=== PATIENT | female | born 1945 | race Caucasian/White ===

== ENCOUNTER 2021-04-01 04:04 | Inpatient (IN) | payer MEDICARE, SELFPAY ==
[2021-04-01] VITALS (7 sets, daily range): BP systolic 105–133; BP diastolic 36–66; PULSE 73–80; RESP 16–24; TEMP 36.6–37.3; O2SAT 93–97; BMI 27.0
--- NOTE | ~2021-04-01 | XR_ITS ---
EXAMINATION: XR chest 2V DATE: 04/01/2021 09:22 INDICATION: Chest pain TECHNIQUE: AP and lateral views of the chest are obtained. COMPARISON: None available FINDINGS: The lungs are free of acute opacities. There is no pleural effusion or pneumothorax. There is a large hiatal hernia. The heart size is normal. There is moderate thoracic spondylosis. IMPRESSION: 1. No acute cardiopulmonary abnormality. Reviewed, dictated and finalized at location A.
--- NOTE | 2021-04-01 03:40 | ADMGEN ---
This patient, Roz Robison, was admitted to 2 Medical Room 240-. Patient/family oriented to hospital policies and general routines including ID bracelet, bed and alarms, visiting hours, pain management, procedures, bathroom and other care routines, personal items, smoking policy, room service/diet, and visiting hours. Information on how to activate the Rapid Response Team has been discussed. Patient/Family are encouraged to report perceived risks to care and to ask questions if they do not understand what they are told or what they should do.
[2021-04-01 06:25] LABS: Basophils Absolute Auto 0.1 K/mm3 (0.0-0.1); Basophils Percent Auto 0.5 % (0.2-1.2); Eosinophils Absolute Auto 0.3 K/mm3 (0-0.3); Eosinophils Percent Auto 2.7 % (0-4.4); Hematocrit 32.3 % (37.0-47.0); Hemoglobin 10.1 g/dL (12.0-15.0); Immature Granulocyte Absolute 0.09 K/mm3 (0.00-0.031); Immature Granulocyte Percent A 0.7 % (0-0.5); Immature Platelet Fraction Pct 12.9 % (0.9-11.2); Lymphocytes Absolute Auto 1.08 K/mm3 (0.9-3.2); Lymphocytes Percent Auto 8.9 % (18.3-44.2); Mean Corpuscular HGB Conc 31.3 g/dl (32-36); Mean Corpuscular Hemoglobin 26.9 pg (26-34); Mean Corpuscular Volume 85.9 fl (80-100); Mean Platelet Volume 13.4 fl (7.4-10.4); Monocytes Absolute Auto 0.9 K/mm3 (0.1-0.6); Monocytes Percent Auto 7.6 % (2.6-8.5); Neutrophils Absolute Auto 9.6 K/mm3 (1.3-6.7); Neutrophils Percent Auto 79.6 % (45.5-73.1); Platelet Count Result 230 k/mm3 (150-375); Red Blood Count 3.76 M/mm3 (4.2-5.4); Red Cell Distribution Width 20.7 % (11.5-14.5); White Blood Count 12.1 K/mm3 (4.5-10.0)
[2021-04-01 06:38] LABS: Alanine Aminotransferase 115 U/L (4-35); Albumin Level 2.8 g/dL (3.5-5.1); Alkaline Phosphatase 1266 U/L (38-126); Anion Gap 10 mmol/L (8-16); Aspartate Amino Transferase 227 U/L (14-36); Bilirubin,Total 12.1 mg/dL (0.2-1.3); Blood Urea Nitrogen 11 mg/dL (7-17); Calcium 8.6 mg/dL (8.4-10.2); Carbon Dioxide 28 mmol/L (22-30); Chloride 102 mmol/L (98-107); Estimated CRCL calculation 40 ml/min; Estimated Glomerular Filt Rate > 60; Glucose 90 mg/dL (65-110); Magnesium 1.8 mg/dL (1.6-2.3); Phosphorus 3.8 mg/dL (2.5-4.5); Potassium 3.6 mmol/L (3.4-5.0); Sodium 140 mmol/L (137-145)
[2021-04-01 06:50] LABS: INR 1.2; Prothrombin Time 14.6 Seconds (11.1-14.7)
[2021-04-01 06:51] LABS: Partial Thromboplastin Time 30.2 SECONDS (22.3-36.8)
--- NOTE | 2021-04-01 08:53 | PM.IMHP ---
H&P: HPI History of Present Illness Date/Time: 04/01/21 08:53 Chief Complaint: Weakness and abnormal urine color Narrative: 76-year-old female in previously good health began feeling poorly in late January. She noted decreased appetite and increasing weakness and decreased exercise tolerance. Under recent point that she fell and could not pull herself up from the floor her family summoned EMS and she was taken to [facility]. There an EGD revealed peptic ulcer disease. She was reportedly H pylori negative. She was started on PPI therapy and sent home. She remained very weak. Was unable to go she ate the steps. She was taken back to [facility]. From there she was transferred to [facility] and [facility] for group home rehab. Yesterday she staff noted that her urine color and her skin color looked a bit different. Labs were drawn and her bilirubin was markedly elevated and liver enzymes were abnormal. Because of this she was sent back to the emergency department. She was transferred to [facility] because of availability interventional soil fertility specialist. While at the outside hospital she underwent a CT of the abdomen and pelvis. This revealed a large heterogeneous mass in the head of the pancreas with dilatation of pancreatic ducts and intrahepatic and extrahepatic bile ducts. There were also multiple hypodense lesions with mass effect noted in the liver. Review of Systems Review of Systems: Generalized weakness. Decreased appetite. Weight loss that she is not able to quantify. Dark urine. Yellow skin. All systems reviewed & are unremarkable except as noted in HPI and below PMFSH Past Medical History Medical History (Updated 04/01/21 @ 09:09 by Jan Notrh MD) Anemia Essential hypertension Former smoker History of skin cancer in adulthood Moh's surgery on skin cancer superior to right upper lip PUD (peptic ulcer disease) Vitamin D deficiency Surgical History Surgical History (Updated 04/01/21 @ 09:00 by Jan North MD) Hx of lymph node biopsy excision of labial mass said to be lymph node Family History Family History (Updated 04/01/21 @ 09:09 by Jan North MD) Father No problems noted. Mother No problems noted. 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 Spiritual care concerns: No Meds Home Medications and Allergies Home Medications Medication Instructions Recorded Confirmed Type allopurinol 100 mg PO DAILY 04/01/21 04/01/21 History atenolol 50 mg PO DAILY 04/01/21 04/01/21 History ergocalciferol (vitamin D2) 50,000 unit PO WEEKLY 04/01/21 04/01/21 History [Vitamin D2] ezetimibe-simvastatin 1 tablet PO HS 04/01/21 04/01/21 History ferrous sulfate [Iron (ferrous 325 mg PO BID 04/01/21 04/01/21 History sulfate)] fluticasone propion-salmeterol 1 inh INHALATION BID 04/01/21 04/01/21 History [Wixela Inhub] lisinopril 30 mg PO DAILY 04/01/21 04/01/21 History Allergies Allergy/AdvReac Type Severity Reaction Status Date / Time adhesive Allergy Itching Verified 04/01/21 04:21 Vital Signs Vital Signs - 24 hr 04/01/21 03:48 04/01/21 04:42 Temperature 98.3 F 98.7 F Pulse Rate 80 73 Respiratory Rate 16 16 Blood Pressure 122/62 105/58 L Pulse O
[2021-04-01] MEDS: lisinopriL 10 MG TABLET 30 MG PO (09:00)
[2021-04-01] MEDS: atenoloL 50 MG TABLET PO (09:00)
[2021-04-01] MEDS: FERROUS SULFATE 324 MG TABLET PO ×2 (09:00→16:59)
[2021-04-01] MEDS: allopurinoL 100 MG TABLET PO (09:01)
--- NOTE | 2021-04-01 09:09 | PC.NURSE ---
pt to Xray at 0965
[2021-04-01] MEDS: FLUTICASONE/SALMETEROL 45-21 MCG INHALER 1 PUFF 2 PUFF INHALATION (10:18)
[2021-04-01] MEDS: PANTOPRAZOLE 40 MG TABLET PO (11:43)
--- NOTE | 2021-04-01 12:46 | WPDGICN ---
Assessment and Plan Assessment and plan (1) Obstructive jaundice: Code(s): K83.1 - Obstruction of bile duct Status: Acute Assessment and Plan: most likely malignancy, could be pancreatic or biliary unfortunately seems to be advanced (liver mets per recent CT scan) will attempt ERCP with metal stent placement to decompress bile duct, also can get samples (can try to use cholangioscopy) will get tumor markers and based on findings will ask oncology to see but probably palliative treatment (2) Elevated liver enzymes: Code(s): R74.8 - Abnormal levels of other serum enzymes Status: Acute Assessment and Plan: trend liver enzymes ercp saturday (3) Pancreatic mass: Code(s): K86.89 - Other specified diseases of pancreas Status: Acute (4) Liver metastases: Code(s): C78.7 - Secondary malignant neoplasm of liver and intrahepatic bile duct Status: Acute (5) Generalized weakness: Code(s): R53.1 - Weakness Status: Acute GI Consult Note Consult date/time: 04/01/21 12:46 Reason for consult: obstructive jaundice, pancreatic head mass HPI: Roz Robison is a 76 year old female with no major medical problems who noted decline in general health in late January with decreased appetite and increasing weakness. She initially went to [facility], evaluated by Dr Cowart who performed EGD that showed peptic ulcer disease and started on ppi and sent home. She did not get any better in fact continue with generalized weakness and fatigue, she was eventually taken to snf rehab because deconditioning but last few days noted dark urine and new onset of jaundice (denies previous history of liver disease, no alcohol use). She was taken to ER at [facility] again, noted elevated liver enzymes and bili- reviewed (tb 9.9, alt 111, ast 194, alb 2.3, inr 1.3), then had CT scan a/p yesterday at [facility], record reviewed c/w large heterogeneous mass in the head of the pancreas which possible involves the adjacent duodenal sweep with dilatation of pancreatic ducts and severe dilation intrahepatic and extrahepatic bile ducts. There were also multiple hypodense lesions with mass effect noted in the liver c/w metastatic disease. I was called last night by ERP and asked to transfer patient to our hospital since they did not have availability of interventional washing machine striper (physician also said that tried several other hospitals in [facility] without luck). Patient denies any previous abdominal imaging. Review of Systems Constitutional: Constitutional: Reports fatigue, Reports lethargy, Reports weakness and Reports weight loss Eyes: Eyes: Denies blurry vision ENT: Reports Normal hearing present Cardiovascular: Cardiovascular: Denies chest pain Respiratory: Respiratory: Denies cough Gastrointestinal: Gastrointestinal: Denies abdominal pain and Reports nausea Genitourinary: Comments: dark urine Musculoskeletal: Musculoskeletal: Denies neck pain Integumentary/Breasts: Comments: jaundice Neurologic: Denies confusion Psychiatric: Psychiatric: Denies no additional psychiatric complaints [facility] Past Medical History Medical History (Updated 04/01/21 @ 12:57 by Mando Echevarria MD) Anemia Elevated liver enzymes Essential hypertension Former smoker Generalized weakness History of skin cancer in adulthood Moh's surgery on skin cancer superior to right upper lip Liver metastases Obstructive jaundice PUD (peptic ulcer disease) Vitamin D deficiency Surgical History Surgical History (Updated 04/01/21 @ 09:00 by Jan North MD) Hx of lymph node biopsy excision of labial mass said to be lymph node Family History Family History (Updated 04/01/21 @ 09:09 by Jan North MD) Father No problems noted. Mother No problems noted. Other Unknown family medical history Social History Social History (Updated 04/01/21 @ 09:11 by Jan Coyle
[2021-04-02] VITALS (7 sets, daily range): BP systolic 105–147; BP diastolic 54–78; PULSE 75–80; RESP 16–18; TEMP 36.6–37.1; O2SAT 94–98
[2021-04-02 04:42] LABS: Hematocrit 28.4 % (37.0-47.0); Hemoglobin 9.2 g/dL (12.0-15.0); Mean Corpuscular HGB Conc 32.4 g/dl (32-36); Mean Corpuscular Hemoglobin 27.3 pg (26-34); Mean Corpuscular Volume 84.3 fl (80-100); Mean Platelet Volume 12.5 fl (7.4-10.4); Platelet Count Result 208 k/mm3 (150-375); Red Blood Count 3.37 M/mm3 (4.2-5.4); White Blood Count 10.7 K/mm3 (4.5-10.0)
[2021-04-02 04:52] LABS: Alanine Aminotransferase 111 U/L (4-35); Albumin Level 2.6 g/dL (3.5-5.1); Alkaline Phosphatase 1146 U/L (38-126); Anion Gap 6 mmol/L (8-16); Aspartate Amino Transferase 201 U/L (14-36); Bilirubin,Total 12.4 mg/dL (0.2-1.3); Blood Urea Nitrogen 11 mg/dL (7-17); Calcium 8.4 mg/dL (8.4-10.2); Carbon Dioxide 29 mmol/L (22-30); Chloride 102 mmol/L (98-107); Estimated CRCL calculation 45 ml/min; Estimated Glomerular Filt Rate > 60; Glucose 106 mg/dL (65-110); Potassium 3.4 mmol/L (3.4-5.0); Sodium 137 mmol/L (137-145)
[2021-04-02] MEDS: ERGOCALCIFEROL 50,000 UNIT CAPSULE 50000 UNITS PO (09:02)
[2021-04-02] MEDS: allopurinoL 100 MG TABLET PO (09:02)
[2021-04-02] MEDS: atenoloL 25 MG TABLET PO (09:02)
[2021-04-02] MEDS: FERROUS SULFATE 324 MG TABLET PO ×2 (09:03→16:49)
[2021-04-02] MEDS: PANTOPRAZOLE 40 MG TABLET PO (09:03)
--- NOTE | 2021-04-02 09:46 | WPDGIPROGNO ---
Progress Note: A&P Assessment and Plan (1) Obstructive jaundice: Code(s): K83.1 - Obstruction of bile duct Status: Acute Assessment and Plan: plan for ercp and stent placement tomorrow, we will attempt also cholangioscopy if possible (2) Pancreatic mass: Code(s): K86.89 - Other specified diseases of pancreas Status: Acute Assessment and Plan: tumor markers pending, most likely malignancy will ask oncology to see (3) Elevated liver enzymes: Code(s): R74.8 - Abnormal levels of other serum enzymes Status: Acute Assessment and Plan: from CT findings will get also hepatitis panel (4) Liver metastases: Code(s): C78.7 - Secondary malignant neoplasm of liver and intrahepatic bile duct Status: Acute (5) Generalized weakness: Code(s): R53.1 - Weakness Status: Acute Subjective Date/time seen: 04/02/21 09:46 Interval history: no new events, some mild discomfort upper abdomen. She is tolerating diet Review of Systems Review of Systems: All systems reviewed & are unremarkable except as noted in HPI and below Exam Const: General: comfortable and no acute distress HENMT: General nose exam: Normal nares present Eyes: Other: icteric sclerae Neck: Neck: supple Resp: Auscultation: clear to auscultation bilaterally Cardio: Rate: regular rate GI: GI Palp: Yes Soft to palpation, No Tenderness to palpation present (GI) and No Guarding due to palpation present (GI) Auscultation: normal bowel sounds Skin: Other: jaundice Neuro: Speech: normal speech Motor exam (neuro): Normal motor muscle tone present throughout Extrem: General: normal to inspection Psych: Mental Status: mental status grossly normal Objective Data Vital Signs Vital Signs: Vital Signs - 24 hr 04/01/21 10:00 04/01/21 14:00 04/01/21 16:00 Temperature 99.1 F 97.8 F 99.2 F Pulse Rate 77 76 78 Respiratory Rate 24 H 24 H 24 H Blood Pressure 110/63 120/66 132/36 L Pulse Oximetry 95 97 95 04/01/21 20:00 04/02/21 00:00 04/02/21 04:00 Temperature 97.8 F 98.8 F 98.2 F Pulse Rate 78 78 75 Respiratory Rate 16 18 18 Blood Pressure 133/53 L 123/54 L 142/62 H Pulse Oximetry 94 96 96 04/02/21 08:00 04/02/21 09:02 Temperature 98.3 F Pulse Rate 80 80 Respiratory Rate 18 Blood Pressure 147/66 H Pulse Oximetry 94 Intake/Output Intake/Output: Intake & Output 03/30/21 03/31/21 04/01/21 04/02/21 23:59 23:59 23:59 23:59 Intake Total 630 240 Output Total 450 400 Balance 180 -160 Meds/Results Medications: Active Medications Generic Name Dose Route Start Last Admin Trade Name Freq PRN Reason Stop Dose Admin Allopurinol 100 mg 04/01/21 08:00 04/02/21 09:02 Allopurinol 100 Mg Tablet PO 100 mg DAILY@0800 [facility] Administration Atenolol 25 mg 04/02/21 09:00 04/02/21 09:02 Atenolol 25 Mg Tablet PO 25 mg DAILY MIKEL Administration Ergocalciferol 50,000 unit 04/02/21 09:00 04/02/21 09:02 Ergocalciferol 50,000 Unit Capsule PO 50,000 unit Merritt@0900 [facility] Administration Ferrous Sulfate 324 mg 04/01/21 08:00 04/02/21 09:03 Ferrous Sulfate 324 Mg Tablet PO 324 mg BIDWM [facility] Administration Morphine Sulfate 2 mg 04/01/21 05:23 Morphine Sulfate (*Crx) 2 Mg/Ml Inj IV PUSH Q4H PRN Pain Rated 7-10 Ondansetron HCl 4 mg 04/01/21 05:23 Ondansetron Inj 4 Mg/2 Ml Vial IV PUSH Q6H PRN Nausea And Vomiting Pantoprazole Sodium 40 mg 04/01/21 09:15 04/02/21 09:03 Pantoprazole 40 Mg Tablet PO 40 mg QAM [facility] Administration Fluticasone/Salmeterol 2 puff 04/01/21 08:00 04/01/21 23:15 Fluticasone/Salmeterol 45-21 Mcg Inhaler 1 Puff INHALATION Not Given Q12HRT [facility] Radiology Results: ITS Impressions Chest X-Ray 04/01/21 09:33 IMPRESSION: 1. No acute cardiopulmonary abnormality. Labs Labs: Laboratory Results - last 24 hr 04/02/21 04/02/21 04:31 04:31 WBC
[2021-04-02] MEDS: FLUTICASONE/SALMETEROL 45-21 MCG INHALER 1 PUFF 2 PUFF INHALATION ×2 (10:58→21:30)
--- NOTE | 2021-04-02 13:09 | PM.IMPN ---
Progress Note: A&P Assessment and Plan (1) Painless jaundice: Code(s): R17 - Unspecified jaundice Status: Acute Assessment and Plan: Clinically due to her pancreatic mass which is likely malignant GI plans ERCP with stenting for relief of biliary obstruction 04/03 (2) Pancreatic mass: Code(s): K86.89 - Other specified diseases of pancreas Status: Acute Assessment and Plan: Consistent with pancreatic malignancy CA 19-9, CA 125 pending (3) Liver masses: Code(s): R16.0 - Hepatomegaly, not elsewhere classified Status: Acute Assessment and Plan: Consistent with metastases likely from pancreatic primary (4) Essential hypertension: Code(s): I10 - Essential (primary) hypertension Status: Acute Assessment and Plan: Hold lisinopril and reduce atenolol to 25 mg daily (5) Anemia: Code(s): D64.9 - Anemia, unspecified Status: Acute (6) Vitamin D deficiency: Code(s): E55.9 - Vitamin D deficiency, unspecified Status: Acute Assessment and Plan: Continue vitamin-D replacement Subjective Date/time seen: 04/02/21 13:09 Interval history: Admitted 04/01/2021 with painless jaundice. 04/02 visit: A bit subdued today. Anxious regarding 04/03 ERCP. Tolerated diet. No abdominal pain at this time. Review of Systems Review of Systems: All systems reviewed & are unremarkable except as noted in HPI and below Exam Narrative: HEENT: PERRL, sclerae ICTERIC, pharyngeal mucosa pink and intact NECK: No JVD, adenopathy, or thyromegaly CHEST: Clear to auscultation. Normal effort. HEART: NL S1/S2, regular, no murmur ABDOMEN: BS+, soft, nontender, no mass, no bruits EXTREMITIES: No cyanosis, edema, or clubbing NEUROLOGIC: CN intact and symmetric to inspection. MUSCULOSKELETAL: Tone and strength symmetric. PSYCH: Alert. Oriented to person, place, and time. Objective Data Vital Signs Vital Signs: Vital Signs - 24 hr 04/01/21 14:00 04/01/21 16:00 04/01/21 20:00 Temperature 97.8 F 99.2 F 97.8 F Pulse Rate 76 78 78 Respiratory Rate 24 H 24 H 16 Blood Pressure 120/66 132/36 L 133/53 L Pulse Oximetry 97 95 94 04/02/21 00:00 04/02/21 04:00 04/02/21 08:00 Temperature 98.8 F 98.2 F 98.3 F Pulse Rate 78 75 80 Respiratory Rate 18 18 18 Blood Pressure 123/54 L 142/62 H 147/66 H Pulse Oximetry 96 96 94 04/02/21 09:02 Temperature Pulse Rate 80 Respiratory Rate Blood Pressure Pulse Oximetry Intake/Output Intake/Output: Intake & Output 03/30/21 03/31/21 04/01/21 04/02/21 23:59 23:59 23:59 23:59 Intake Total 630 600 Output Total 450 400 Balance 180 200 Meds/Results Medications: Active Medications Generic Name Dose Route Start Last Admin Trade Name Freq PRN Reason Stop Dose Admin Allopurinol 100 mg 04/01/21 08:00 04/02/21 09:02 Allopurinol 100 Mg Tablet PO 100 mg DAILY@0800 [facility] Administration Atenolol 25 mg 04/02/21 09:00 04/02/21 09:02 Atenolol 25 Mg Tablet PO 25 mg DAILY MIKEL Administration Ergocalciferol 50,000 unit 04/02/21 09:00 04/02/21 09:02 Ergocalciferol 50,000 Unit Capsule PO 50,000 unit Merritt@0900 [facility] Administration Ferrous Sulfate 324 mg 04/01/21 08:00 04/02/21 09:03 Ferrous Sulfate 324 Mg Tablet PO 324 mg BIDWM MIKEL Administration Morphine Sulfate 2 mg 04/01/21 05:23 Morphine Sulfate (*Crx) 2 Mg/Ml Inj IV PUSH Q4H PRN Pain Rated 7-10 Ondansetron HCl 4 mg 04/01/21 05:23 Ondansetron Inj 4 Mg/2 Ml Vial IV PUSH Q6H PRN Nausea And Vomiting Pantoprazole Sodium 40 mg 04/01/21 09:15 04/02/21 09:03 Pantoprazole 40 Mg Tablet PO 40 mg QAM MIKEL Administration Fluticasone/Salmeterol 2 puff 04/01/21 08:00 04/02/21 10:58 Fluticasone/Salmeterol 45-21 Mcg Inhaler 1 Puff INHALATION 2 puff Q12HRT MIKEL Administration Radiology Results: ITS Impressions Chest X-Ray 04/01/21 09:33 IMPRESSION: 1. No acut
[2021-04-02] MEDS: MORPHINE SULFATE (*CRX) 2 MG/ML INJ IV PUSH (16:58)
[2021-04-03] VITALS (16 sets, daily range): BP systolic 112–140; BP diastolic 52–78; PULSE 74–87; RESP 16–25; TEMP 36.1–37.6; O2SAT 94–100
[2021-04-03 05:36] LABS: Hematocrit 27.2 % (37.0-47.0); Hemoglobin 8.8 g/dL (12.0-15.0); Immature Platelet Fraction Pct 13.1 % (0.9-11.2); Mean Corpuscular HGB Conc 32.4 g/dl (32-36); Mean Corpuscular Volume 83.4 fl (80-100); Mean Platelet Volume 13.1 fl (7.4-10.4); Platelet Count Result 204 k/mm3 (150-375); Red Blood Count 3.26 M/mm3 (4.2-5.4); Red Cell Distribution Width 21.7 % (11.5-14.5); White Blood Count 10.6 K/mm3 (4.5-10.0)
[2021-04-03 05:43] LABS: Alanine Aminotransferase 104 U/L (4-35); Albumin Level 2.5 g/dL (3.5-5.1); Alkaline Phosphatase 1118 U/L (38-126); Anion Gap 7 mmol/L (8-16); Aspartate Amino Transferase 187 U/L (14-36); Bilirubin,Total 13.9 mg/dL (0.2-1.3); Blood Urea Nitrogen 11 mg/dL (7-17); Calcium 8.4 mg/dL (8.4-10.2); Carbon Dioxide 28 mmol/L (22-30); Chloride 100 mmol/L (98-107); Estimated CRCL calculation 45 ml/min; Estimated Glomerular Filt Rate > 60; Glucose 106 mg/dL (65-110); Potassium 3.4 mmol/L (3.4-5.0); Sodium 135 mmol/L (137-145)
[2021-04-03 07:06] LABS: Hepatitis B Surface Antigen Negative (Negative)
[2021-04-03 07:12] LABS: HAV RESULT Negative (Negative); Hepatitis B Core IgM Result Negative (Negative)
[2021-04-03 07:24] LABS: Hepatitis C Virus Antibody Negative (Negative)
[2021-04-03] MEDS: FERROUS SULFATE 324 MG TABLET PO ×2 (08:24→16:00)
[2021-04-03] MEDS: atenoloL 25 MG TABLET PO (08:24)
[2021-04-03] MEDS: allopurinoL 100 MG TABLET PO (08:24)
[2021-04-03] MEDS: PANTOPRAZOLE 40 MG TABLET PO (08:24)
[2021-04-03] MEDS: FLUTICASONE/SALMETEROL 45-21 MCG INHALER 1 PUFF 2 PUFF INHALATION ×2 (08:54→20:04)
--- NOTE | 2021-04-03 10:21 | PC.NURSE ---
I spoke with Mine from GI lab. She stated the Indomethacin is to be given in GI lab.
--- NOTE | 2021-04-03 12:22 | WPDANESEPPF ---
Anes - Initial Pre Proc Eval Procedure: Operation Date: 04/03/21 15:00 Proposed Procedures p Endoscopic Retro Cholangiopancreatogram - Mando Echevarria MD Date/Time: 04/03/21 12:22 Surgeon: Ping Tran MD Pre Op Diagnosis: Pancreatic Mass Patient Data Age: 76 Gender: F Height: 1.55 m Weight: 64.9 kg Last Vital Signs Temp 37.1 C 04/03/21 12:00 Pulse 79 04/03/21 12:00 Resp 18 04/03/21 12:00 BP 138/68 04/03/21 12:00 Pulse Ox 95 04/03/21 12:00 Allergies Allergy/AdvReac Type Severity Reaction Status Date / Time adhesive Allergy Itching Verified 04/01/21 04:21 Home Medications Medication Instructions Recorded Confirmed Type allopurinol 100 mg PO DAILY 04/01/21 04/01/21 History atenolol 50 mg PO DAILY 04/01/21 04/01/21 History ergocalciferol (vitamin D2) 50,000 unit PO WEEKLY 04/01/21 04/01/21 History [Vitamin D2] ezetimibe-simvastatin 1 tablet PO HS 04/01/21 04/01/21 History ferrous sulfate [Iron (ferrous 325 mg PO BID 04/01/21 04/01/21 History sulfate)] fluticasone propion-salmeterol 1 inh INHALATION BID 04/01/21 04/01/21 History [Wixela Inhub] lisinopril 30 mg PO DAILY 04/01/21 04/01/21 History Laboratory Tests 04/03/21 04/03/21 04/03/21 04:41 04:41 04:41 WBC 10.6 K/mm3 H K/mm3 (4.5-10.0) RBC 3.26 M/mm3 L M/mm3 (4.2-5.4) Hgb 8.8 g/dL L g/dL (12.0-15.0) Hct 27.2 % L % (37.0-47.0) MCV 83.4 fl fl (80-100) MCH 27.0 pg pg (26-34) MCHC 32.4 g/dl g/dl (32-36) RDW 21.7 % H % (11.5-14.5) Plt Count 204 k/mm3 k/mm3 (150-375) MPV 13.1 fl H fl (7.4-10.4) % Immature Plt Fraction 13.1 % H % (0.9-11.2) Sodium 135 mmol/L L mmol/L (137-145) Potassium 3.4 mmol/L mmol/L (3.4-5.0) Chloride 100 mmol/L mmol/L (98-107) Carbon Dioxide 28 mmol/L mmol/L (22-30) Anion Gap 7 mmol/L L mmol/L (8-16) BUN 11 mg/dL mg/dL (7-17) Creatinine 0.80 mg/dL mg/dL (0.7-1.0) Estim Creat Clear Calc 45 ml/min ml/min Estimated GFR > 60 (59 - ) Glucose 106 mg/dL mg/dL (65-110) Calcium 8.4 mg/dL mg/dL (8.4-10.2) Total Bilirubin 13.9 mg/dL H mg/dL (0.2-1.3) AST 187 U/L H U/L (14-36) ALT 104 U/L H U/L (4-35) Alkaline Phosphatase 1118 U/L H U/L (38-126) Total Protein 6.0 g/dL L g/dL (6.3-8.2) Albumin 2.5 g/dL L g/dL (3.5-5.1) CA 19-9 Antigen Pending CA 125 Antigen Pending Hepatitis A IgM Ab Hep Bs Antigen Hep B Core IgM Ab Hepatitis C Ab Screen 04/03/21 04:41 WBC RBC Hgb Hct MCV MCH MCHC RDW Plt Count MPV % Immature Plt Fraction Sodium Potassium Chloride Carbon Dioxide Anion Gap BUN Creatinine Estim Creat Clear Calc Estimated GFR Glucose Calcium Total Bilirubin AST ALT Alkaline Phosphatase Total Protein Albumin CA 19-9 Antigen CA 125 Antigen Hepatitis A IgM Ab Negative (Negative) Hep Bs Antigen Negative (Negative) Hep B Core IgM Ab Negative (Negative) Hepatitis C Ab Screen Negative (Negative) Patient hx anesthesia problems: none Family hx anesthesia problems: none PMFSH Past Medical History Medical History Anemia Elevated liver enzymes Essential hypertension Former smoker Generalized weakness History of skin cancer in adulthood Moh's surgery on skin cancer superior to right upper lip Liver metastases Obstructive jaundice PUD (peptic ulcer disease) Vitamin D deficiency Surgical History Surgical His
[2021-04-03] MEDS: LACTATED RINGERS 1,000 ML 150 ML IV CONT (12:36)
[2021-04-03] MEDS: levoFLOXacin 500 MG/D5W 100 ML 500 MG/100 ML BAG 100 MG IVPB (12:40)
[2021-04-03] MEDS: INDOMETHACIN 50 MG SUPP.RECT RECTAL (13:31)
--- NOTE | 2021-04-03 14:13 | SUR.OPER ---
ATTEMPTED ERCP, BUT UNSUCCESSFUL. EGD ONLY PROCEDURE COMPLETED.
--- NOTE | 2021-04-03 15:05 | PC.NURSE ---
Returned from GI Lab.
--- NOTE | 2021-04-03 15:25 | PM.IMPN ---
Progress Note: A&P Assessment and Plan (1) Painless jaundice: Code(s): R17 - Unspecified jaundice Status: Acute Assessment and Plan: Clinically due to her pancreatic mass which is likely malignant GI plans ERCP with stenting for relief of biliary obstruction 04/0304/03/21 15:25 patient with a pancreatic mass had ERCP today showed malignant-appearing duodenal mass, GI recommending to transfer the patient to tertiary, I spoke with the patient see does not want to be transferred and considering palliative care possibly hospice, patient will discuss with her family and will decide next step will continue to monitor. (2) Pancreatic mass: Code(s): K86.89 - Other specified diseases of pancreas Status: Acute Assessment and Plan: Consistent with pancreatic malignancy CA 19-9, CA 125 pending (3) Liver masses: Code(s): R16.0 - Hepatomegaly, not elsewhere classified Status: Acute Assessment and Plan: Consistent with metastases likely from pancreatic primary (4) Essential hypertension: Code(s): I10 - Essential (primary) hypertension Status: Acute Assessment and Plan: Hold lisinopril and reduce atenolol to 25 mg daily (5) Anemia: Code(s): D64.9 - Anemia, unspecified Status: Acute (6) Vitamin D deficiency: Code(s): E55.9 - Vitamin D deficiency, unspecified Status: Acute Assessment and Plan: Continue vitamin-D replacement Subjective Date/time seen: 04/03/21 15:25 patient with a pancreatic mass had ERCP today showed malignant-appearing duodenal mass, GI recommending to transfer the patient to tertiary, I spoke with the patient see does not want to be transferred and considering palliative care possibly hospice, patient will discuss with her family and will decide next step will continue to monitor. Review of Systems Review of Systems: All systems reviewed & are unremarkable except as noted in HPI and below Exam Narrative: Patient is comfortable, NAD HEENT: eyes are clear and none icteric LUNGS: normal respiratory effort ABD: not distended Lower extremities: no edema SKIN:jaundiced Neuro: grossly intact normal speech. Objective Data Vital Signs Vital Signs: Vital Signs - 24 hr 04/02/21 16:00 04/02/21 20:00 04/03/21 00:00 Temperature 98.7 F 97.9 F 97.3 F L Pulse Rate 76 76 79 Respiratory Rate 18 16 16 Blood Pressure 105/78 139/64 116/52 L Pulse Oximetry 98 94 95 04/03/21 04:00 04/03/21 08:00 04/03/21 08:24 Temperature 98.8 F 99.7 F H Pulse Rate 78 80 84 Respiratory Rate 18 18 Blood Pressure 138/61 132/66 Pulse Oximetry 96 96 04/03/21 08:59 04/03/21 12:00 04/03/21 12:22 Temperature 98.8 F 98.2 F Pulse Rate 79 87 Respiratory Rate 18 22 H Blood Pressure 138/68 140/71 Pulse Oximetry 94 95 95 04/03/21 14:07 04/03/21 14:17 04/03/21 14:27 Temperature 97.0 F L 97.5 F L Pulse Rate 77 76 76 Respiratory Rate 24 H 25 H 24 H Blood Pressure 128/68 122/59 L 125/59 L Pulse Oximetry 100 100 100 04/03/21 14:37 04/03/21 14:47 04/03/21 14:57 Temperature Pulse Rate 74 75 78 Respiratory Rate 21 H 19 19 Blood Pressure 135/61 129/62 138/62 Pulse Oximetry 100 98 98 Intake/Output Intake/Output: Intake & Output 03/31/21 04/01/21 04/02/21 04/03/21 23:59 23:59 23:59 23:59 Intake Total 630 690 300 Output Total 450 700 300 Balance 180 -10 0 Meds/Results Medications: Active Medications Generic Name Dose Route Start Last Admin Trade Name Hudsonq PRN Reason Stop Dose Admin Allopurinol 100 mg 04/01/21 08:00 04/03/21 08:24 Allopurinol 100 Mg Tablet PO 100 mg DAILY@0800 [facility] Administration Atenolol 25 mg 04/02/21 09:00 04/03/21 08:24 Atenolol 25 Mg Tablet PO 25 mg DAILY [facility] Administration Ergocalciferol 50,000 unit 04/02/21 09:00 04/02/21 09:02 Ergocalciferol 50,000 Unit Capsule PO 50,000 unit Merritt@0900 [facility] Administration Ferrous Sulfate 32
[2021-04-03] MEDS: PANTOPRAZOLE SODIUM IV 40 MG VIAL IV PUSH (20:45)
[2021-04-04] VITALS (8 sets, daily range): BP systolic 110–140; BP diastolic 54–83; PULSE 72–85; RESP 16–22; TEMP 35.6–36.6; O2SAT 94–100
[2021-04-04 05:04] LABS: Hematocrit 27.5 % (37.0-47.0); Hemoglobin 8.8 g/dL (12.0-15.0); Mean Corpuscular Hemoglobin 27.3 pg (26-34); Mean Corpuscular Volume 85.4 fl (80-100); Mean Platelet Volume 12.6 fl (7.4-10.4); Platelet Count Result 228 k/mm3 (150-375); Red Blood Count 3.22 M/mm3 (4.2-5.4); Red Cell Distribution Width 22.3 % (11.5-14.5); White Blood Count 9.7 K/mm3 (4.5-10.0)
[2021-04-04 05:21] LABS: Alanine Aminotransferase 92 U/L (4-35); Albumin Level 2.5 g/dL (3.5-5.1); Alkaline Phosphatase 1066 U/L (38-126); Anion Gap 6 mmol/L (8-16); Aspartate Amino Transferase 126 U/L (14-36); Bilirubin,Total 14.3 mg/dL (0.2-1.3); Blood Urea Nitrogen 17 mg/dL (7-17); Calcium 8.3 mg/dL (8.4-10.2); Carbon Dioxide 27 mmol/L (22-30); Chloride 101 mmol/L (98-107); Estimated CRCL calculation 40 ml/min; Estimated Glomerular Filt Rate > 60; Glucose 166 mg/dL (65-110); Sodium 134 mmol/L (137-145)
[2021-04-04] MEDS: FLUTICASONE/SALMETEROL 45-21 MCG INHALER 1 PUFF 2 PUFF INHALATION ×2 (07:53→20:44)
[2021-04-04] MEDS: allopurinoL 100 MG TABLET PO (08:47)
[2021-04-04] MEDS: atenoloL 25 MG TABLET PO (08:47)
[2021-04-04] MEDS: FERROUS SULFATE 324 MG TABLET PO ×2 (08:47→16:11)
[2021-04-04] MEDS: PANTOPRAZOLE SODIUM IV 40 MG VIAL IV PUSH ×2 (08:48→20:29)
[2021-04-04 10:56] LABS: Potassium 4.1 mmol/L (3.4-5.0)
--- NOTE | 2021-04-04 11:27 | PM.IMPN ---
Progress Note: A&P Assessment and Plan (1) Painless jaundice: Code(s): R17 - Unspecified jaundice Status: Acute Assessment and Plan: Clinically due to her pancreatic mass which is likely malignant GI plans ERCP with stenting for relief of biliary obstruction 04/03 Patient with a pancreatic mass had ERCP today showed malignant-appearing duodenal mass, GI recommending to transfer the patient to [facility], patient wants to talkto hospice and wants to dc back to her rehab placement. (2) Pancreatic mass: Code(s): K86.89 - Other specified diseases of pancreas Status: Acute Assessment and Plan: Consistent with pancreatic malignancy CA 19-9, CA 125 pending (3) Liver masses: Code(s): R16.0 - Hepatomegaly, not elsewhere classified Status: Acute Assessment and Plan: Consistent with metastases likely from pancreatic primary (4) Essential hypertension: Code(s): I10 - Essential (primary) hypertension Status: Acute Assessment and Plan: Hold lisinopril and reduce atenolol to 25 mg daily (5) Anemia: Code(s): D64.9 - Anemia, unspecified Status: Acute (6) Vitamin D deficiency: Code(s): E55.9 - Vitamin D deficiency, unspecified Status: Acute Assessment and Plan: Continue vitamin-D replacement Subjective Date/time seen: 04/04/21 11:27 Interval history: Admitted 04/01/2021 with painless jaundice. Found go have pancreatic mass and malignant-appearing duodenal mass Pt would like to go have to her rehab placement on discharge and will decide on hospice later. Review of Systems Review of Systems: All systems reviewed & are unremarkable except as noted in HPI and below Exam Narrative: Patient is comfortable, heavily jaundiced HEENT:jaundiced in color LUNGS: normal respiratory effort ABD0: not distended Lower extremities: no edema SKIN:jaundiced Neuro: grossly intact normal speech. Objective Data Vital Signs Vital Signs: Vital Signs - 24 hr 04/03/21 12:00 04/03/21 12:22 04/03/21 14:07 Temperature 37.1 C 36.8 C 36.1 C L Pulse Rate 79 87 77 Respiratory Rate 18 22 H 24 H Blood Pressure 138/68 140/71 128/68 Pulse Oximetry 95 95 100 04/03/21 14:17 04/03/21 14:27 04/03/21 14:37 Temperature 36.4 C L Pulse Rate 76 76 74 Respiratory Rate 25 H 24 H 21 H Blood Pressure 122/59 L 125/59 L 135/61 Pulse Oximetry 100 100 100 04/03/21 14:47 04/03/21 14:57 04/03/21 15:05 Temperature 36.9 C Pulse Rate 75 78 76 Respiratory Rate 19 19 18 Blood Pressure 129/62 138/62 115/72 Pulse Oximetry 98 98 95 04/03/21 16:00 04/03/21 20:00 04/04/21 00:00 Temperature 36.9 C 36.7 C 36.6 C Pulse Rate 80 79 85 Respiratory Rate 18 18 18 Blood Pressure 112/78 117/71 139/69 Pulse Oximetry 97 97 96 04/04/21 04:00 04/04/21 08:30 04/04/21 08:47 Temperature 36.6 C 36.3 C L Pulse Rate 74 81 81 Respiratory Rate 16 22 H Blood Pressure 140/69 117/77 Pulse Oximetry 94 97 04/04/21 10:45 Temperature 36.3 C L Pulse Rate 78 Respiratory Rate 18 Blood Pressure 117/66 Pulse Oximetry 97 Intake/Output Intake/Output: Intake & Output 04/01/21 04/02/21 04/03/21 04/04/21 23:59 23:59 23:59 23:59 Intake Total 630 690 300 360 Output Total 450 700 300 300 Balance 180 -10 0 60 Meds/Results Medications: Active Medications Generic Name Dose Route Start Last Admin Trade Name Hudsonq PRN Reason Stop Dose Admin Allopurinol 100 mg 04/01/21 08:00 04/04/21 08:47 Allopurinol 100 Mg Tablet PO 100 mg DAILY@0800 REPLACED BY [facility] Administration Atenolol 25 mg 04/02/21 09:00 04/04/21 08:47 Atenolol 25 Mg Tablet PO 25 mg DAILY REPLACED BY [facility] Administration Ergocalciferol 50,000 unit 04/02/21 09:00 04/02/21 09:02 Ergocalciferol 50,000 Unit Capsule PO 50,000 unit Merritt@0900 REPLACED BY [facility] Administration Ferrous Sulfate 324 mg 04/01/21 08:00 04/04/21 08:47 Ferrous Sulfate 324 Mg Tablet PO 324 mg BIDWM REPLACED BY [facility] Administration
--- NOTE | 2021-04-04 12:40 | PC.NURSE ---
On 04/04/21, the student, [Dora Perdue ], provided care and completed [facility] documentation on this patient. I have reviewed the student's documentation and agree with the findings.
--- NOTE | 2021-04-04 12:47 | PDONCCN ---
HPI - Date of Consult Date/Time: 04/04/21 12:47 Requesting Physician: Ping Tran MD Primary Care Provider: Bettie Mason, HOSTEL MANAGER - Consult Narrative Reason for consult: Likely metastatic pancreatic cancer Narrative: Roz Robison is a 76 year old female who was in good health previously except history of hypertension just retired about 2 years ago was taken to the [facility] with generalized weakness and tiredness and fatigue. Patient has been noticing loss of appetite and generalized weakness since early February of 2021. Patient had EGD done that showed peptic ulcer disease. She was started on PPI and sent [facility]. Staff at the rehab center notice dark discoloration of the urine and labs were ordered that showed markedly elevated bilirubin level and elevated liver enzymes. She was then admitted to [facility]. Patient had CT scan done at the outside hospital that revealed large mass in the head of the pancreas with dilatation of pancreatic duct, intrahepatic and extrahepatic bile duct along with multiple hypodense lesions in the liver. Patient had EGD done on April 03 that showed malignant-appearing duodenal mass and biopsies were taken. Clinically she is complaining of tiredness and fatigue along with shortness of breath. He denies any bleeding including melena hematochezia. She denies any abdominal pain. Denies any nausea vomiting. She has loss of appetite. She is not sure how much weight she has lost. Review of Systems - Review of Systems All systems reviewed & are unremarkable except as noted in HPI and bel - Neurologic Reports hearing normal, Reports weakness, Denies confusion [facility] Medical History: Medical History (Last Reviewed 04/03/21 @ 12:22 by Ross Boyce MD) Anemia Elevated liver enzymes Essential hypertension Former smoker Generalized weakness History of skin cancer in adulthood Moh's surgery on skin cancer superior to right upper lip Liver metastases Obstructive jaundice PUD (peptic ulcer disease) Vitamin D deficiency Surgical History: Surgical History (Last Reviewed 04/03/21 @ 12:22 by Ross Boyce MD) Hx of lymph node biopsy excision of labial mass said to be lymph node Family History: Family History (Last Reviewed 04/03/21 @ 12:22 by Ross Boyce MD) Father No problems noted. Mother No problems noted. Other Unknown family medical history - Social History Social History: Social History (Last Reviewed 04/03/21 @ 12:22 by Ross Boyce MD) Alcohol Use: Alcohol intake: current Drinks per week: 14 Alcohol use details: 2 martinis with supper Substance Use: Substance use: current Substance use type: does not use Others: Spiritual care concerns: No Living Arrangements: Living arrangements: alone Oppucation/Education: Occupation/Education: retired Smoking Status: Smoking status: Former smoker Smoking end date: 10/08/19 Approximate Smoking End Date: 2019 Smoking Pack-years: Smoking packs per day: 0.33 Smoking cigarettes per day: 6.6 Years smoked: 57 Smoking pack-years: 18.81 Meds Home Medications Medication Instructions Recorded Confirmed Type allopurinol 100 mg PO DAILY 04/01/21 04/01/21 History atenolol 50 mg PO DAILY 04/01/21 04/01/21 History ergocalciferol (vitamin D2) 50,000 unit PO WEEKLY 04/01/21 04/01/21 History [Vitamin D2] ezetimibe-simvastatin 1 tablet PO HS 04/01/21 04/01/21 History ferrous sulfate [Iron (ferrous 325 mg PO BID 04/01/21 04/01/21 History sulfate)] fluticasone propion-salmeterol 1 inh INHALATION BID 04/01/21 04/01/21 History [Wixela Inhub] lisinopril 30 mg PO DAILY 04/01/21 04/01/21 History Allergies Allergy/AdvReac Type Severity Reaction Status Date / Time adhesive Allergy Itching Verified 04/03/21 12:31
[2021-04-04 14:19] LABS: Iron 62 ug/dL (37-170)
[2021-04-04 14:27] LABS: Folic Acid 7.4 ng/mL (2.76->20)
[2021-04-04 14:31] LABS: Percent Iron Saturation 28 % (20-50)
--- NOTE | 2021-04-04 15:39 | WPDGIPROGNO ---
Progress Note: A&P Assessment and Plan (1) Duodenal mass: Code(s): K31.89 - Other diseases of stomach and duodenum Status: Acute Assessment and Plan: yesterday unable to pass ERCP scope through tight stricture in duodenum, only EGD scope. Found large ulcerated mass in 2nd portion duodenum (reviewed EGD records from [facility] earlier this month and had ulcer in duodenum treated endoscopically). 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 Patient is leaning towards comfort care, most likely she just would like to stay here and avoid transfer to tertiary hospital (discussed that obstructive jaundice could be relieved either by EUS or interventional radiology). Oncology on board (2) Liver metastases: Code(s): C78.7 - Secondary malignant neoplasm of liver and intrahepatic bile duct Status: Acute Assessment and Plan: poor prognosis but awaiting biopsies (3) Obstructive jaundice: Code(s): K83.1 - Obstruction of bile duct Status: Acute (4) Iron deficiency anemia: Code(s): D50.9 - Iron deficiency anemia, unspecified Status: Acute Subjective Date/time seen: 04/04/21 15:39 Interval history: no new complaints Review of Systems Review of Systems: All systems reviewed & are unremarkable except as noted in HPI and below Exam Const: General: comfortable and no acute distress HENMT: General nose exam: Normal nares present Eyes: Other: icteric sclerae Neck: Neck: supple Resp: Auscultation: clear to auscultation bilaterally Cardio: Rate: regular rate GI: GI Palp: Yes Soft to palpation, No Tenderness to palpation present (GI) and No Guarding due to palpation present (GI) Auscultation: normal bowel sounds Skin: Other: jaundice Neuro: Speech: normal speech Motor exam (neuro): Normal motor muscle tone present throughout Extrem: General: normal to inspection Psych: Mental Status: mental status grossly normal Objective Data Vital Signs Vital Signs: Vital Signs - 24 hr 04/03/21 16:00 04/03/21 20:00 04/04/21 00:00 Temperature 98.5 F 98.1 F 97.9 F Pulse Rate 80 79 85 Respiratory Rate 18 18 18 Blood Pressure 112/78 117/71 139/69 Pulse Oximetry 97 97 96 04/04/21 04:00 04/04/21 08:30 04/04/21 08:47 Temperature 97.8 F 97.4 F L Pulse Rate 74 81 81 Respiratory Rate 16 22 H Blood Pressure 140/69 117/77 Pulse Oximetry 94 97 04/04/21 10:45 04/04/21 14:00 Temperature 97.4 F L 96.1 F L Pulse Rate 78 75 Respiratory Rate 18 18 Blood Pressure 117/66 118/54 L Pulse Oximetry 97 98 Intake/Output Intake/Output: Intake & Output 04/01/21 04/02/21 04/03/21 04/04/21 23:59 23:59 23:59 23:59 Intake Total 630 690 300 600 Output Total 450 700 300 300 Balance 180 -10 0 300 Meds/Results Medications: Active Medications Generic Name Dose Route Start Last Admin Trade Name Freq PRN Reason Stop Dose Admin Allopurinol 100 mg 04/01/21 08:00 04/04/21 08:47 Allopurinol 100 Mg Tablet PO 100 mg DAILY@0800 [facility] Administration Atenolol 25 mg 04/02/21 09:00 04/04/21 08:47 Atenolol 25 Mg Tablet PO 25 mg DAILY MIKEL Administration Ergocalciferol 50,000 unit 04/02/21 09:00 04/02/21 09:02 Ergocalciferol 50,000 Unit Capsule PO 50,000 unit Merritt@0900 [facility] Administration Ferrous Sulfate 324 mg 04/01/21 08:00 04/04/21 08:47 Ferrous Sulfate 324 Mg Tablet PO 324 mg BIDWM MIKEL Administration Morphine Sulfate 2 mg 04/01/21 05:23 04/02/21 16:58 Morphine Sulfate (*Crx) 2 Mg/Ml Inj IV PUSH 2 mg Q4H PRN Administration Pain Rated 7-10 Ondansetron HCl 4 mg 04/01/21 05:23 Ondansetron Inj 4 Mg/2 Ml Vial IV PUSH Q6H PRN Nausea And Vomiting Pantoprazole Sodium 40 mg 04/03/21 21:00 04/04/21 08:48 Pantoprazole Sodium Iv 40 Mg Vial IV PUSH 40 mg Q12HR MIKEL Administration Fluticasone/Salmeterol 2 puff 04/01/21 08:00 04/04/21 07:53 Fluticasone/Salmeterol 45-21 Mcg Inhaler
[2021-04-05] VITALS (8 sets, daily range): BP systolic 113–127; BP diastolic 57–74; PULSE 71–87; RESP 16–24; TEMP 36.1–37.2; O2SAT 94–100
[2021-04-05 00:14] LABS: CA-125 377 U/mL (<35)
[2021-04-05 06:21] LABS: CA 19-9 7938 U/mL (<34)
[2021-04-05] MEDS: FLUTICASONE/SALMETEROL 45-21 MCG INHALER 1 PUFF 2 PUFF INHALATION (08:06)
[2021-04-05] MEDS: atenoloL 25 MG TABLET PO (08:51)
[2021-04-05] MEDS: FERROUS SULFATE 324 MG TABLET PO ×2 (08:51→16:35)
[2021-04-05] MEDS: allopurinoL 100 MG TABLET PO (08:51)
[2021-04-05] MEDS: PANTOPRAZOLE SODIUM IV 40 MG VIAL IV PUSH (08:52)
[2021-04-05] MEDS: MORPHINE SULFATE (*CRX) 2 MG/ML INJ IV PUSH (09:00)
[2021-04-05 16:26] LABS: EDCOVIDSCREEN Negative (Negative)
--- NOTE | 2021-04-05 16:34 | WPDGIPROGNO ---
Progress Note: A&P Assessment and Plan (1) Pancreatic adenocarcinoma: Code(s): C25.9 - Malignant neoplasm of pancreas, unspecified Status: Acute Assessment and Plan: path report showed hepatobiliary/pancreatic adenocarcinoma with high CA19-9 and CA 125 and also evidence of liver mets by recent CT scan oncology on board poor prognosis patient still considering hospice option (2) Liver metastases: Code(s): C78.7 - Secondary malignant neoplasm of liver and intrahepatic bile duct Status: Acute (3) Duodenal mass: Code(s): K31.89 - Other diseases of stomach and duodenum Status: Acute Assessment and Plan: large ulcerated area in duodenum with stricture and + for panc adenoca continue ppi (4) Iron deficiency anemia: Code(s): D50.9 - Iron deficiency anemia, unspecified Status: Acute (5) Generalized weakness: Code(s): R53.1 - Weakness Status: Acute (6) Obstructive jaundice: Code(s): K83.1 - Obstruction of bile duct Status: Acute Assessment and Plan: another option is percutaneous transhepatic biliary drainage by IR or EUS guided biliary drainage in order to improve jaundice as palliation but either only done at tertiary hospital and she is leaning towards less invasive approach and even hospice Subjective Date/time seen: 04/05/21 16:34 Interval history: no major changes Review of Systems Review of Systems: All systems reviewed & are unremarkable except as noted in HPI and below Exam Const: General: comfortable and no acute distress HENMT: General nose exam: Normal nares present Eyes: Other: icteric sclerae Neck: Neck: supple Resp: Auscultation: clear to auscultation bilaterally Cardio: Rate: regular rate GI: GI Palp: Yes Soft to palpation, No Tenderness to palpation present (GI) and No Guarding due to palpation present (GI) Auscultation: normal bowel sounds Skin: Other: jaundice Neuro: Speech: normal speech Motor exam (neuro): Normal motor muscle tone present throughout Extrem: General: normal to inspection Psych: Mental Status: mental status grossly normal Objective Data Vital Signs Vital Signs: Vital Signs - 24 hr 04/04/21 17:52 04/04/21 20:00 04/05/21 00:00 Temperature 97.9 F 97.9 F 98.3 F Pulse Rate 72 72 72 Respiratory Rate 18 16 16 Blood Pressure 110/83 127/67 117/59 L Pulse Oximetry 100 98 98 04/05/21 04:00 04/05/21 08:00 04/05/21 08:07 Temperature 98.9 F 98.3 F Pulse Rate 82 87 81 Respiratory Rate 16 16 16 Blood Pressure 113/57 L 127/72 Pulse Oximetry 96 95 04/05/21 08:09 04/05/21 08:51 04/05/21 12:00 Temperature 96.9 F L Pulse Rate 80 76 Respiratory Rate 24 H Blood Pressure 119/67 Pulse Oximetry 94 96 Intake/Output Intake/Output: Intake & Output 04/02/21 04/03/21 04/04/21 04/05/21 23:59 23:59 23:59 23:59 Intake Total 690 300 940 450 Output Total 204 271 9129 Balance -10 0 -160 450 Meds/Results Medications: Active Medications Generic Name Dose Route Start Last Admin Trade Name Freq PRN Reason Stop Dose Admin Allopurinol 100 mg 04/01/21 08:00 04/05/21 08:51 Allopurinol 100 Mg Tablet PO 100 mg DAILY@0800 [facility] Administration Atenolol 25 mg 04/02/21 09:00 04/05/21 08:51 Atenolol 25 Mg Tablet PO 25 mg DAILY [facility] Administration Ergocalciferol 50,000 unit 04/02/21 09:00 04/02/21 09:02 Ergocalciferol 50,000 Unit Capsule PO 50,000 unit Merritt@0900 [facility] Administration Ferrous Sulfate 324 mg 04/01/21 08:00 04/05/21 08:51 Ferrous Sulfate 324 Mg Tablet PO 324 mg BIDWM [facility] Administration Morphine Sulfate 2 mg 04/01/21 05:23 04/05/21 09:00 Morphine Sulfate (*Crx) 2 Mg/Ml Inj IV PUSH 2 mg Q4H PRN Administration Pain Rated 7-10 Ondansetron HCl 4 mg 04/01/21 05:23 Ondansetron Inj 4 Mg/2 Ml Vial IV PUSH Q6H PRN Nausea And Vomiting Pantoprazole Sodium 40 mg 04/03/21 21:00 04/05/21 08:52
--- NOTE | 2021-04-05 16:37 | PM.DS ---
DS: Admitting Diagnosis Discharge Date 04/05/21 Admitting Diagnosis (1) Painless jaundice: Code(s): R17 - Unspecified jaundice Status: Acute Assessment and Plan: Clinically due to her pancreatic mass which is likely malignant GI evaluation is pending for possible ERCP with stenting for relief of biliary obstruction (2) Pancreatic mass: Code(s): K86.89 - Other specified diseases of pancreas Status: Acute Assessment and Plan: Consistent with pancreatic malignancy (3) Liver masses: Code(s): R16.0 - Hepatomegaly, not elsewhere classified Status: Acute Assessment and Plan: Consistent with metastases likely from pancreatic primary (4) Essential hypertension: Code(s): I10 - Essential (primary) hypertension Status: Acute Assessment and Plan: Hold lisinopril and reduce atenolol to 25 mg daily (5) Anemia: Code(s): D64.9 - Anemia, unspecified Status: Acute (6) Vitamin D deficiency: Code(s): E55.9 - Vitamin D deficiency, unspecified Status: Acute Assessment and Plan: Continue vitamin-D replacement DS: Discharge Diagnosis Discharge Diagnosis (1) Painless jaundice: Code(s): R17 - Unspecified jaundice Status: Acute Assessment and Plan: Clinically due to her pancreatic mass which is likely malignant GI plans ERCP with stenting for relief of biliary obstruction 04/03 Patient with a pancreatic mass had ERCP today showed malignant-appearing duodenal mass, GI recommending to transfer the patient to tertiary, patient wants to talkto hospice and wants to dc back to her rehab placement. (2) Pancreatic mass: Code(s): K86.89 - Other specified diseases of pancreas Status: Acute Assessment and Plan: Consistent with pancreatic malignancy CA 19-9, CA 125 pending (3) Liver masses: Code(s): R16.0 - Hepatomegaly, not elsewhere classified Status: Acute Assessment and Plan: Consistent with metastases likely from pancreatic primary (4) Essential hypertension: Code(s): I10 - Essential (primary) hypertension Status: Acute Assessment and Plan: Hold lisinopril and reduce atenolol to 25 mg daily (5) Anemia: Code(s): D64.9 - Anemia, unspecified Status: Acute (6) Vitamin D deficiency: Code(s): E55.9 - Vitamin D deficiency, unspecified Status: Acute Assessment and Plan: Continue vitamin-D replacement DS: Summary Hospital Course Reason for hospitalization: painless jaundice Hospital Course: 76-year-old female presents to the emergency room with chief complaint of feeling unwell since January 2021. Patient recently discharged from another hospital and transferred to [facility] for [facility] rehab. It was noted by staff that her urine color and her skin color looked a bit different and she was transported to [facility] for further care. She was noted to be icteric with alkaline phos 1266 AST 227 ALT 115 and total bilirubin 12.1. patient underwent EGD and CT imaging which revealed wide spread metastatic disease with biopsies positive for pancreatic cancer. (stage IV) ERCP was unsuccessful at our hospital due to severe narrowing of lumen from invading tumor. patient was offered transfer to tertiary center for ultrasound-guided biliary drainage or alternative therapies. She declined further intervention and/or transfer. Pt opted for short stay at rehab prior to returning home w [facility]. Status at Discharge Overall status at discharge: patient is back to baseline Time Spent with Patient Time attestation: Total time spent providing and/or coordinating discharge services: Time spent: Greater than 30 minutes Exam Narrative: Patient is comfortable, cooperative HEENT:EOMI iceteric LUNGS: normal respiratory effort ABD: not distended Lower extremities: no edema NROM SKIN:jaundiced Neuro: grossly intact, normal sp
--- NOTE | 2021-04-05 19:20 | PC.NURSE ---
I attempted to call report to [facility]. I was on hold for 36 minutes. Unable to reach a nurse to give report to. Will pass along report to mask layout designer nurse who may call report. information faxed to [facility].
[2021-04-06 19:51] LABS: Alpha Fetoprotein Tumor Marker 1.9 ng/mL (<6.1)
[2021-04-07 00:26] LABS: CA-125 381 U/mL (<35)
[2021-04-07 06:43] LABS: CA 19-9 6802 U/mL (<34)
== END 2021-04-05 20:10 | DRG 436 ==
PROVIDERS: Internal Medicine; Internal Medicine Gastroenterology; Internal Medicine Hematology & Oncology; Admitting Provider Internal Medicine; PCP Nurse Practitioner Family; Visit Provider Hospitalist
PROC: 0DB98ZX Excision of Duodenum, Via Natural or Artificial Opening Endoscopic, Diagnostic (ICD-10-PCS; CPT 43260; principal; 2021-04-03 15:00)
DX: C25.9 Malignant neoplasm of pancreas, unspecified (principal); C78.7 Secondary malignant neoplasm of liver and intrahepatic bile duct; Z20.822 Contact with and (suspected) exposure to COVID-19; K31.89 Other diseases of stomach and duodenum; K44.9 Diaphragmatic hernia without obstruction or gangrene; D50.9 Iron deficiency anemia, unspecified; I10 Essential (primary) hypertension; E55.9 Vitamin D deficiency, unspecified; R53.1 Weakness; Z87.891 Personal history of nicotine dependence; Z79.899 Other long term (current) drug therapy
CPT/HCPCS: 36415; 71046; 80053; 80074; 82105; 82607; 82728; 82746; 83540; 83550; 83735; 84100; 85025; 85027; 85055; 85610; 85730; 86301; 86304; 87426; 88305; 88342; 94640; 97110; 97116; 97161; 97165; A9270; C9113; C9803; J0330; J1100; J1956; J2270; J2405; J2704; J7120